=== PATIENT | female | born 1990 | race African-American/Black ===

== ENCOUNTER 2019-09-14 13:57 | Emergency (ER) | payer OTHER ==
[~2019-09-14] VITALS: Ht 172.7 cm; Wt 103.8 kg
--- NOTE | 2019-09-14 14:20 | NUR ---
Patient reports vaginal bleeding, episodes of nausea and vomiting. Recent travel from [place] to [place] for a work conference. Denies any other issues at this time.
[2019-09-14 14:55] LABS: BASOPHILS # (AUTO) 0.03 x10^3/uL (0-0.1); BASOPHILS % (AUTO) 0 % (0-1); EOSINOPHILS # (AUTO) 0.11 x10^3/uL (0-0.4); EOSINOPHILS % (AUTO) 1 % (1-7); LYMPHOCYTES # (AUTO) 1.79 x10^3/uL (1-3.4); LYMPHOCYTES % (AUTO) 20 % (22-44); MD NO; MEAN CORPUSCULAR HEMOGLOBIN 29.7 pg (27.0-34.8); MEAN CORPUSCULAR HGB CONC 33.1 g/dL (32.4-35.8); MEAN CORPUSCULAR VOLUME 89.6 fL (80-100); MEAN PLATELET VOLUME 9.7 fL (7.4-10.4); MONOCYTES # (AUTO) 0.83 x10^3/uL (0.2-0.8); MONOCYTES % (AUTO) 9 % (2-9); NEUTROPHILS # (AUTO) 6.21 x10^3/uL (1.8-6.8); NEUTROPHILS % (AUTO) 69 % (42-75); PLATELET COUNT 247 x10^3/uL (130-400); RED BLOOD COUNT 4.24 x10^6/uL (3.82-5.3); RED CELL DISTRIBUTION WIDTH 12.8 % (9.6-15.2)
[2019-09-14 14:58] LABS: ALBUMIN 3.4 g/dL (3.4-5.0); ANION GAP 6 mmol/L (5-15); CALCIUM 9.1 mg/dL (8.5-10.1); CHLORIDE 109 mmol/L (98-107); CREATININE 0.73 mg/dL (0.55-1.02)
--- NOTE | 2019-09-14 15:08 | NUR ---
Patient to ultrasound with tech
[2019-09-14 17:13] LABS: MICROSCOPIC NOT IND
[2019-09-14 17:18] LABS: CULTURE INDICATED? NO
--- NOTE | 2019-09-14 17:46 | NUR ---
Patient discharged home, reports cramping but has not got worse. Discharge instructions provided all questions and concerns addressed. Ambulatory with steady gait. All belongings with patient.
[2019-09-14 17:47] VITALS: BP 125/78
== END 2019-09-14 17:52 | disposition home or self-care (01) ==
LOC: ED 17:45
DX: O20.0 Threatened abortion (principal); Z3A.12 12 weeks gestation of pregnancy; I10 Essential (primary) hypertension
CPT/HCPCS: 36415; 76801; 80048; 81003; 82040; 84702; 85025; 86901; 99284